=== PATIENT | male | born 1995 | race Caucasian/White ===

== ENCOUNTER 2020-11-12 10:20 | Emergency (ER) | payer OTHER ==
[2020-11-12] MEDS ORDERED: Ketorolac 15 MG/ML SDV IM ONE (11:18)
--- NOTE | 2020-11-12 14:11 | CR ---
INDICATION: Left lateral posterior ankle and foot pain and swelling. TECHNIQUE: Three views left foot. Three views left ankle. FINDINGS: No acute fracture or dislocation in left foot or ankle. Small accessory ossicle adjacent to the cuboid chronic. Mild subcutaneous edema. Remainder negative. Dictated by Garry Coronel MD @ 11/12/2020 2:10:[address] Garry Coronel @ Nov 12 2020 2:10PM
--- NOTE | 2020-11-12 14:11 | CR ---
INDICATION: Left lateral posterior ankle and foot pain and swelling. TECHNIQUE: Three views left foot. Three views left ankle. FINDINGS: No acute fracture or dislocation in left foot or ankle. Small accessory ossicle adjacent to the cuboid chronic. Mild subcutaneous edema. Remainder negative. Dictated by Garry Coronel MD @ 11/12/2020 2:10:[address] Garry Coronel @ Nov 12 2020 2:10PM
--- NOTE | 2020-11-12 14:42 | EDM.PDOC ---
ED HPI GENERAL MEDICAL PROBLEM - General Chief Complaint: Lower Extremity Injury/Pain Stated Complaint: LFT ANKLE SWOLLEN Time Seen by Provider: 11/12/20 11:07 - History of Present Illness INITIAL COMMENTS - FREE TEXT/NARRATIVE: CHIEF COMPLAINT(S): Left ankle and foot pain HISTORY OF PRESENT ILLNESS: This is a 25-year-old man without any significant past medical history who presents to the emergency department with a chief complaint of left ankle and foot pain. The patient states that since yesterday evening he has noticed that his left foot and left ankle have been hurting. He states that the pain is located on the back of his ankle and on the left side of his ankle. He states that there is some swelling in this area. He currently rates his pain as 10 out of 10 and achy. He denies any injury to the ankle. He denies any numbness or tingling. He states that he is able to bear weight on it and walk on it. He has not yet taken any pain medication. Moving the ankle exacerbates the pain. Not moving the ankle relates the pain. He denies any other symptoms. He denies any IV drug use, skin rash or fever. REVIEW OF SYSTEMS: Constitutional: Denies fever, chills. Eyes: Denies eye pain Ears, Nose, Mouth, & Throat: Denies earache Cardiovascular: Denies chest pain Respiratory: Denies shortness of breath Gastrointestinal: Denies Nausea, vomiting, diarrhea, hematochezia. Genitourinary: Denies hematuria Skin:Denies a rash MSK: Positive for left ankle and heel pain. Neurological: Denies blurred vision, numbness, tingling, weakness Psychiatric: Denies depression PAST MEDICAL HISTORY: As per history of present illness and as reviewed below otherwise noncontributory. SURGICAL HISTORY: As per history of present illness and as reviewed below otherwise noncontributory. SOCIAL HISTORY: As per history of present illness and as reviewed below otherwise noncontributory. FAMILY HISTORY: As per history of present illness and as reviewed below otherwise noncontributory. EXAMINATION OF ORGAN SYSTEMS/BODY AREAS: Constitutional: Blood pressure was 132/72, heart rate 101, respiratory rate 18 with an oxygen saturation of 95-9 7% on room air. Temperature 36.9 General: Well-appearing man in no acute distress Psychiatric: Appropriate mood and affect. Eyes: No scleral icterus or conjunctival erythema Cardiovascular: Regular, rate, and rhythm. No gallops, murmurs, or rubs. Bilateral upper extremity pulses symmetric and intact. No peripheral edema. No JVD. Respiratory: Lungs clear to auscultation bilaterally. No wheezes, rales, or rhonchi. Musculoskeletal: Patient has mild swelling to the lateral malleolus otherwise no obvious abnormality. There is tenderness to palpation along the lateral malleolus. In addition there is tenderness along the Achilles tendon on the posterior aspect of the heel. The patient can fully plantar flex and dorsiflex his left ankle. Skin: No lesions or abrasions. Neurological: Alert, GCS 15 distal sensation is intact. MEDICAL DECISION MAKING AND COURSE IN THE ED WITH INTERPRETATION/REVIEW OF DIAGNOSTIC STUDIES: This is a 25-year-old man without any significant past medical history who comes to the emergency department with left ankle and Achilles tendon pain. Patient does not have any evidence of Achilles tendon rupture. Will obtain a foot and ankle x-ray. This could be secondary to a sprain however we have to rule out a fracture. We will provide the patient with Toradol for pain relief and reevaluate. The radiological images were viewed by myself along with reading the report from the radiologist. Ankle x-ray does not reveal any fracture or dislocation. Foot x-ray does not reveal a fracture dislocation. After imaging I did discuss the results with the patient. At this time I did discuss with him that I do believe he is experiencing Achilles tendinitis and a possible ankle sprain. I discussed treatment with him. He is to return for any new or worsening symptoms. DISPOSITION: The patient was discharged home in stable condition. The patient will follow up with primary care physician in 3 to 5 days for reevaluation CONDITION: Fair PROCEDURES: None FINAL IMPRESSION(S)/DIAGNOSES: 1. Acute left ankle sprain 2. Acute left Achilles tendinitis rOal Phillips M.D. L ankle\ Pain Score (Numeric/FACES): 8 - Related Data Allergies Allergy/AdvReac Type Severity Reaction Status Date / Time No Known Allergies Allergy Verified 11/12/20 10:57 Home Meds: Home Meds . [No Known Home Meds] 01/18/18 [History] Past Medical History - Past Health History Medical/Surgical History: Denies Medical/Surgical History HEENT History: Reports: None Cardiovascular History: Reports: None Respiratory History: Reports: Asthma Gastrointestinal History: Reports: None Genitourinary History: Reports: None Musculoskeletal History: Reports: None Neurological History: Reports: None Psychiatric History: Reports: None Endocrine/Metabolic History: Reports: None Hematologic History: Reports: None Immunologic History: Reports: None Oncologic (Cancer) History: Reports: None Dermatologic History: Reports: None - Infectious Disease History Infectious Disease History: Reports: None - Past Surgical History Head Surgeries/Procedures: Reports: None Respiratory Surgical History: Reports: None Social & Family History - Family History Family Medical History: No Pertinent Family History - Tobacco Use Tobacco Use Status *Q: Current Every Day Tobacco User Years of Tobacco use: 10 Packs/Tins Daily: 0.5 - Caffeine Use Caffeine Use: Reports: Energy Drinks - Recreational Drug Use Recreational Drug Use: No Review of Systems - Review of Systems Review Of Systems: See Below ED EXAM, GENERAL - Physical Exam Exam: See Below Course - Vital Signs Last Recorded V/S: Last Vital Signs Temp 36.7 C 11/12/20 14:58 Pulse 81 11/12/20 14:58 Resp 16 11/12/20 14:58 BP 114/70 11/12/20 14:58 Pulse Ox 97 11/12/20 14:58 - Orders/Labs/Meds Meds: Medications Discontinued Medications Generic Name Dose Route Start Last Admin Trade Name Sil PRN Reason Stop Dose Admin Ketorolac Tromethamine 30 mg 11/12/20 11:18 11/12/20 11:22 Ketorolac 15 Mg/Ml Sdv IM 11/12/20 11:19 30 mg ONETIME ONE Administration Departure - Departure Time of Disposition: 14:38 Disposition: Home, Self-Care 01 Condition: Fair Clinical Impression: Ankle sprain, Achilles tendinitis - Discharge Information *PRESCRIPTION DRUG MONITORING PROGRAM REVIEWED*: No *COPY OF PRESCRIPTION DRUG MONITORING REPORT IN PATIENT SETH: No Instructions: Ankle Sprain, [id number], Tendinitis, Achilles Tendinitis Referrals: PCP,None [Primary Care Provider] - Forms: ED Department Discharge Additional Instructions: You were evaluated today on an emergent basis. At this time your x-ray did not reveal any fracture. At this time I do believe you are experiencing what is called Achilles tendinitis and you may also have a ankle sprain. At this time I do recommend that you elevate your left ankle as we discussed, ice it 20 minutes 4 times a day, rest, buy inserts that are thickened in the back to help relieve some of the stretch on your Achilles tendon and use Tylenol and Motrin as we discussed. If you have any worsening pain, fever, redness, worsening swelling I would like you to return to the emergency department. Otherwise please follow- up with your primary care physician within 3 to 5 days. Please use: Tylenol 500-1000mg every 6 hours (DO NOT TAKE MORE THAN 4000mg in 1 day) Ibuprofen 400mg every 6 hours (Take with food as it can cause ulcers, GI upset) Example schedule: 8:00 AM (Tylenol 500-1000mg) 11:00 AM (Ibuprofen 400mg) 2:00 PM (Tylenol 500-1000mg) 5:00 PM (Ibuprofen 400mg) In addition to Tylenol and Motrin you may use over the counter creams such as Voltaren Cream or Lidocaine Cream (Lidoderm) as needed 4 times a day for symptomatic relief. Ice the area 20 minutes 4 times per day [facility] - [facility] [address] [place] [address] [place] [address] The patient is informed of any results of their evaluation and diagnostic workup and all questions are answered. They are given discharge instructions and return precautions. The patient is stable for discharge. The patient states they understand and agree with the plan and that they will return if their symptoms get worse or if they have any new concerns. The following information is given to patients seen in the emergency department who are being discharged to home. This information is to outline your options for follow-up care. We provide all patients seen in our emergency department with a follow-up referral. The need for follow-up, as well as the timing and circumstances, are variable depending upon the specifics of your emergency department visit. If you don't have a primary care physician on staff, we will provide you with a referral. We always advise you to contact your personal physician following an emergency department visit to inform them of the circumstance of the visit and for follow-up with them and/or the need for any referrals to a consulting specialist. The emergency department will also refer you to a specialist when appropriate. This referral assures that you have the opportunity for follow-up care with a specialist. All of these measure are taken in an effort to provide you with optimal care, which includes your follow-up. Under all circumstances we always encourage you to contact your private physician who remains a resource for coordinating your care. When calling for follow-up care, please make the office aware that this follow-up is from your recent emergency room visit. If for any reason you are refused follow-up, please contact the [facility] Emergency Department at and asked to speak to the emergency department charge nurse. Sepsis Event Note (ED) - Evaluation Sepsis Screening Result: No Definite Risk
== END 2020-11-12 14:59 | disposition home or self-care (01) ==
LOC: MW.ED 10:20
DX: S93.402A Sprain of unspecified ligament of left ankle, initial encounter (principal); M76.62 Achilles tendinitis, left leg; Z72.0 Tobacco use; X58.XXXA Exposure to other specified factors, initial encounter
CPT/HCPCS: 73610; 73630; 96372; 99283; J1885

== ENCOUNTER 2020-12-07 06:55 | Emergency (ER) | payer OTHER ==
--- NOTE | 2020-12-07 07:26 | EDM.PDOC ---
ED HPI GENERAL MEDICAL PROBLEM - General Chief Complaint: Lower Extremity Injury/Pain Stated Complaint: LEFT ANKLE PAIN Time Seen by Provider: 12/07/20 06:58 - History of Present Illness INITIAL COMMENTS - FREE TEXT/NARRATIVE: History of present illness: [] For several days the patient has pain and swelling in his left ankle. It is posterior around the Achilles area. Today it was so painful when he tried to stand and he cannot walk on it. 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 He was off of it for 3 months and says he improved. His next problem with his ankle and foot happened 11/11/2020. He began to have pain and swelling in the ankle and the next day he found it severe and came in to see us on 11/12/2020. Ankle and foot x-rays were negative. He essentially stayed off of it gradually increasing his weightbearing for 4 or 5 days and it improved completely. Over the last 4 or 5 days it is deteriorated as he has started to increase his activity and workout more. Review of systems: As per history of present illness and below otherwise all systems reviewed and negative. Past medical history: As per history of present illness and as reviewed below otherwise noncontributory. Surgical history: As per history of present illness and as reviewed below otherwise noncontributory. Social history: No reported history of drug or alcohol abuse. Family history: As per history of present illness and as reviewed below otherwise noncontributory. Physical exam: Constitutional - well developed, well-nourished and in no acute distress HEENT - normocephalic, no evidence of trauma - external nose and mouth normal - no mass in neck and no JVD - mucosae moist EYES - full EOM, PERRL, no icterus - no evidence of inflammation, injection, or drainage Respiratory - no respiratory distress, equal bilateral expansion Musculoskeletal all abnormalities are isolated to the lower extremity below the lower third of the leg. He has exquisite tenderness in the Achilles tendon distally and in the medial ankle distally. He has tenderness in the lateral and medial malleolus and the foot at the same level. Plantar flexion causes exquisite pain when resisted. Dorsiflexion causes a little pain but not as much. Otherwise no gross deformity of long bones or joints - no tenderness, swelling or edema Neurologic - Alert and oriented times four - CN II-XII grossly intact - motor sensory and coordination symmetrically normal Psychiatric - appropriate mood and affect with normal thought content Hematologic - No petechiae or purpura - mucosa appropriate color and sclera not pale - normal nail bed color and refill Integument - no rash or evidence of trauma - normal turgor Diagnostics: [] Therapeutics: [] Impression: [] Plan: [] Definitive disposition and diagnosis as appropriate pending reevaluation and review of above. geneticist left ankl Pain Score (Numeric/FACES): 4 - Related Data Allergies Allergy/AdvReac Type Severity Reaction Status Date / Time No Known Allergies Allergy Verified 12/07/20 07:23 Home Meds: Home Meds . [No Known Home Meds] 01/18/18 [History] Past Medical History - Past Health History Medical/Surgical History: Denies Medical/Surgical History HEENT History: Reports: None Cardiovascular History: Reports: None Respiratory History: Reports: Asthma Gastrointestinal History: Reports: None Genitourinary History: Reports: None Musculoskeletal History: Reports: None Neurological History: Reports: None Psychiatric History: Reports: None Endocrine/Metabolic History: Reports: None Hematologic History: Reports: None Immunologic History: Reports: None Oncologic (Cancer) History: Reports: None Dermatologic History: Reports: None - Infectious Disease History Infectious Disease History: Reports: None - Past Surgical History Head Surgeries/Procedures: Reports: None Respiratory Surgical History: Reports: None Social & Family History - Family History Family Medical History: No Pertinent Family History - Caffeine Use Caffeine Use: Reports: Energy Drinks Review of Systems - Review of Systems Review Of Systems: Comprehensive ROS is negative, except as noted in HPI. ED EXAM, GENERAL - Physical Exam Exam: See Below Free Text/Narrative:: My physical exam is in the HPI Course - Vital Signs Text/Narrative:: It appears the patient has a potential stress fracture in the ankle or partial rupture of the Achilles tendon. This may be residual from an initial injury many years ago. The patient has not seen a manager bar or an orthopedist. He had plain films on 12 November and these were negative. Plan to do stress fracture rule out by plain films today and then refer to orthopedics or podiatry so that he can have an MRI and further investigation. In the meantime he will be nonweightbearing. 8:15 AM x-ray reveals a small bony fragment posterior to the talus which was present on the prior x-ray and appears to be an old injury or chronic abnormali ty. Patient will have a Rodriguez dressing applied and offered crutches for nonweightbearing and be referred to orthopedics or podiatry as soon as possible. We will also try to arrange an MRI of the ankle and foot. 8:18 AM I discussed the case with MRI and they will get it done tomorrow or that being Friday they may have to do it Friday or Friday. My plan is to have him follow-up with orthopedics or podiatry within a day or so of having his MRI because he will be nonweightbearing in the interim. Regarding DME-the patient needs protection from stress fracture or stress rupture of his heel so bulky wrap and Mykel wrap are applied and should be left in place for at least 3 days and until Ortho can follow-up. Crutches are given for nonweightbearing for 3 days or until Ortho can follow-up. Diagnosis is a presumed stress rupture of the Achilles tendon which is not completed but must be avoided. Last Recorded V/S: Last Vital Signs Temp 36.5 C 12/07/20 07:19 Pulse 78 12/07/20 07:19 Resp 18 12/07/20 07:19 BP 118/76 12/07/20 07:19 Pulse Ox 97 12/07/20 07:19 - Orders/Labs/Meds Orders: Active Orders 24 hr Category Date Time Status DME for Discharge [COMM] Stat Oth 12/07/20 08:15 Ordered Departure - Departure Time of Disposition: 08:40 Disposition: Home, Self-Care 01 Condition: Good Clinical Impression: Soft tissue injury of left ankle - Discharge Information Instructions: Crutch Use, Adult, [id number], Ankle Sprain, [id number] Referrals: PCP,None [Primary Care Provider] - Truong Guzman DPM [Physician] - Forms: ED Department Discharge Additional Instructions: I believe the bone over the Achilles tendon are weakened and with overuse are at risk for complete rupture or fracture. Please make an appointment with the orthopedic clinic or a manager bar. The appointment should be as soon as possible after the MRI. MRI should be done tomorrow or Friday. NSAIDs are appropriate for pain. Elevation is helpful for swelling. [facility] - [facility] Clinic Professional Building [address] [place], [address] [place] [address] [facility] - Primary Care [address] [place] [address] [facility] [address] [place] [id number] The following information is given to patients seen in the emergency department who are being discharged to home. This information is to outline your options for follow-up care. We provide all patients seen in our emergency department with a follow-up referral. The need for follow-up, as well as the timing and circumstances, are variable depending upon the specifics of your emergency department visit. If you don't have a primary care physician on staff, we will provide you with a referral. We always advise you to contact your personal physician following an emergency department visit to inform them of the circumstance of the visit and for follow-up with them and/or the need for any referrals to a consulting specialist. The emergency department will also refer you to a specialist when appropriate. This referral assures that you have the opportunity for follow-up care with a specialist. All of these measure are taken in an effort to provide you with optimal care, which includes your follow-up. Under all circumstances we always encourage you to contact your private physician who remains a resource for coordinating your care. When calling for follow-up care, please make the office aware that this follow-up is from your recent emergency room visit. If for any reason you are refused follow-up, please contact the [facility] Emergency Department at and asked to speak to the emergency department charge nurse. Sepsis Event Note (ED) - Evaluation Sepsis Screening Result: No Definite Risk - Focused Exam Vital Signs: Vital Signs Temp Pulse Resp BP Pulse Ox 12/07/20 07:19 36.5 C 78 18 118/76 97 - My Orders Last 24 Hours: My Active Orders 12/07/20 08:15 DME for Discharge [COMM] Stat - Assessment/Plan Last 24 Hours: My Active Orders 12/07/20 08:15 DME for Discharge [COMM] Stat
--- NOTE | 2020-12-07 08:02 | CR ---
Indication: Left ankle pain Technique: Left ankle 3 views Comparison: November 12, 2020. Findings: Bones: Alignment is normal. No fractures or bone lesions. Joint spaces: Joint spaces are well maintained. No degenerative changes. Soft tissues: Unremarkable. Impression: No findings to explain pain. Dictated by Adrián Talavera MD @ 12/07/2020 8:00:54 AM (Electronically Signed)
== END 2020-12-07 08:44 | disposition home or self-care (01) ==
LOC: MW.ED 06:55
DX: S99.912A Unspecified injury of left ankle, initial encounter (principal); X58.XXXA Exposure to other specified factors, initial encounter
CPT/HCPCS: 73610-26-LT; 73610-LT; 99283-25